=== PATIENT | male | born 1990 | race Caucasian/White ===

== ENCOUNTER 2017-12-26 08:44 | Emergency (ER) | payer MEDICAID, SELFPAY ==
--- NOTE | 2017-12-26 09:48 | RAD ---
CHEST TWO VIEWS: History: Cough x one month. Chills. Comparison: 01-26-15 FINDINGS: Normal cardiac silhouette. The pulmonary vessels and hilum are normal. Costophrenic angles are clear. No consolidation or mass. No pneumothorax or osseous abnormality. IMPRESSION: No acute cardiopulmonary process. POS: [facility]
== END 2017-12-26 09:45 | disposition home or self-care (01) ==
LOC: MADERS 08:44
DX: J06.9 Acute upper respiratory infection, unspecified (principal); F17.210 Nicotine dependence, cigarettes, uncomplicated; B20 Human immunodeficiency virus [HIV] disease; Z79.899 Other long term (current) drug therapy
CPT/HCPCS: 71046

== ENCOUNTER 2018-02-23 18:39 | Emergency (ER) | payer MEDICAID, OTHER ==
[2018-02-23] MEDS ORDERED: Ketorolac Tromethamine 60 MG/2 ML VIAL ONE (19:14)
== END 2018-02-23 19:39 | disposition home or self-care (01) ==
LOC: MADERS 18:39
DX: M62.830 Muscle spasm of back (principal); B20 Human immunodeficiency virus [HIV] disease; F17.210 Nicotine dependence, cigarettes, uncomplicated
CPT/HCPCS: 96372; J1885

== ENCOUNTER 2018-11-01 12:39 | Emergency (ER) | payer OTHER ==
[2018-11-01] MEDS ORDERED: Ondansetron ODT 4 MG TAB ONE (13:08)
[2018-11-01] MEDS ORDERED: Donnatal Elixir 16.2 MG/5 ML UDCUP ONE (13:22)
[2018-11-01] MEDS ORDERED: Mag-Al Plus 1200 MG/1200 MG/120 MG/30 ML UDCUP ONE (13:23)
[2018-11-01] MEDS ORDERED: Lidocaine Viscous Sol 2% 15 ml UD Cup ONE (13:23)
[2018-11-01] MEDS ORDERED: Metoclopramide HCl 10 MG/2 ML VIAL ONE (14:00)
== END 2018-11-01 14:24 | disposition home or self-care (01) ==
LOC: MADERS 12:39
DX: T18.198A Other foreign object in esophagus causing other injury, initial encounter (principal); R13.10 Dysphagia, unspecified; B20 Human immunodeficiency virus [HIV] disease; F17.210 Nicotine dependence, cigarettes, uncomplicated
CPT/HCPCS: 96372; 99283; J2765; Q0162